=== PATIENT | male | born 1965 | race Two or more races ===

== ENCOUNTER 2016-12-23 06:52 | Day surgery (SDC) | payer OTHER ==
[2016-12-23] MEDS ORDERED: MORPHINE SULFATE PF 10 MG/10 ML AMPUL IV ONE (07:16)
[2016-12-23] MEDS ORDERED: BUPIVACAINE/EPI PF 0.25% 30 ML VIAL ONE (07:20)
[2016-12-23] MEDS ORDERED: SEVOFLURANE 250 ML BOTTLE ONE (10:01)
[2016-12-23] MEDS ORDERED: FENTANYL CITRATE 100 MCG/2 ML AMPUL ONE (11:33)
[2016-12-23] MEDS ORDERED: KETOROLAC TROMETHAMINE 30 MG INJ ONE (11:36)
[2016-12-23] MEDS ORDERED: HYDROMORPHONE 1 MG/1 ML DISP.SYRIN ONE (11:56)
[2016-12-23] MEDS ORDERED: ONDANSETRON 4 MG/2 ML VIAL ONE (11:56)
[2016-12-23] MEDS ORDERED: OXYCODONE/APAP 5-325 MG TABLET ONE (12:49)
[2016-12-23] MEDS ORDERED: PROPOFOL 200 MG/20 ML BOTTLE IV ONE (13:34)
[2016-12-23] MEDS ORDERED: CEFAZOLIN 1 G VIAL MC ONE (13:34)
[2016-12-23] MEDS ORDERED: DEXAMETHASONE SOD PHOSPHATE 4 MG INJ IV ONE (13:35)
[2016-12-23] MEDS ORDERED: ONDANSETRON 4 MG/2 ML VIAL IV ONE (13:35)
[2016-12-23] MEDS ORDERED: LIDOCAINE-MPF 2% 5 ML VIAL MC ONE (13:36)
[2016-12-23] MEDS ORDERED: IV NORMAL SALINE 1000 ML BAG IV ONE (13:37)
== END 2016-12-23 13:17 | disposition home or self-care (01) ==
LOC: DS 06:52
PROVIDERS: ATTEND Orthopaedic Surgery
DX: M23.221 Derangement of posterior horn of medial meniscus due to old tear or injury, right knee (principal); M23.241 Derangement of anterior horn of lateral meniscus due to old tear or injury, right knee; M94.261 Chondromalacia, right knee; S83.8X1A Sprain of other specified parts of right knee, initial encounter; X58.XXXA Exposure to other specified factors, initial encounter; Y93.9 Activity, unspecified; Y92.89 Other specified places as the place of occurrence of the external cause; Y99.9 Unspecified external cause status
CPT/HCPCS: 29875; 29880; A4663; J0690; J1100; J1170; J1885; J2274; J2405 ×2; J3010; J3490 ×3; J7030 ×2; J7120